=== PATIENT | male | born 1960 | race Caucasian/White ===

== ENCOUNTER 2019-08-02 12:09 | Day surgery (SDC) | payer BC ==
[~2019-08-02 12:09] MED LIST: Buffered Lidocaine 1% SYRIN* 1 ML/SYRINGE INTRADERM ONE; Lactated Ringers 1000 ML Bag* 1,000 ML IV SCH
[2019-08-02] MEDS ORDERED: Benzocaine/Butamben/Tetracain (CETACAINE - SINGLE USE) 5 gm TOPICAL ONE (13:50)
[2019-08-02] MEDS ORDERED: fentaNYL* 50 MCG/ML 2 ML VIAL (100 MCG VIAL) ONE (14:11)
[2019-08-02] MEDS ORDERED: Propofol* 10 MG/ML 20 ML BTL ONE (14:11)
[2019-08-02] MEDS ORDERED: Succinylcholine* 20 MG/ML 10 ML VIAL ONE (14:13)
[2019-08-02] MEDS ORDERED: Rocuronium* 10 MG/ML VIAL ONE (14:13)
[2019-08-02] MEDS ORDERED: Glycopyrrolate IV* 0.2 MG/ML 1 ML VIAL ONE (14:14)
[2019-08-02] MEDS ORDERED: Sugammadex * 200 MG/2 ML VIAL IV PUSH ONE (14:55)
[2019-08-02] MEDS ORDERED: Ondansetron INJ* 2 MG/ML VIAL ONE (15:02)
[2019-08-02] MEDS ORDERED: Naloxone* 0.4 MG/ML 1 ML VIAL IV PRN (15:15)
[2019-08-02] MEDS ORDERED: Acetaminophen IV 1GM/100ML * 1,000 MG/100 ML VIAL IVPB ONE (15:15)
[2019-08-02] MEDS ORDERED: Ondansetron INJ* 2 MG/ML VIAL IV PRN (15:15)
[2019-08-02] MEDS ORDERED: Dexamethasone IV* 4 MG/ML 1 ML (4 MG) ONE (15:31)
[2019-08-02 15:52] VITALS: BP 126/83
--- NOTE | 2019-08-02 16:11 | BRIEFOPN ---
Brief Operative/Procedure Note - Operation Details Pre-Op Diagnosis: Lung mass, PET positive R4 node Post-Op Diagnosis: No metastatic disease in R4 Procedures: Bronchoscopy/EBUS Surgeon(s)/Proceduralists: Shanthi Anesthesia: GA Estimated Blood Loss: Negligable Findings: No metastatic disease in R4, lymphoma testing pending Specimen(s)/Culture(s) Description: FNA from R4 for cell block and flow cytometry Complications: None
--- NOTE | 2019-08-02 17:56 | PRO ---
BRONCHOSCOPY REPORT: DATE OF PROCEDURE: 08/02/19 - [facility] PROCEDURE PERFORMED: Bronchoscopy with endobronchial ultrasound-guided fine needle aspiration of R4 lymph node. PREPROCEDURAL DIAGNOSIS: Lung mass and PET-positive right pretracheal lymph node. ANESTHESIA: General anesthesia. DESCRIPTION OF PROCEDURE: Informed consent was obtained from the patient prior to the procedure after all the risks and benefits were thoroughly explained. The patient recently was undergoing surveillance scan and was found to have enlarged right upper lobe lung mass and enlarged right pretracheal lymph node, which PET confirmed with significant uptake. The patient was intubated with size 8.5 endotracheal tube. Informed consent was obtained from the patient prior to the procedure after all the risks and benefits were thoroughly explained. Appropriate time-out was performed and agreed on by attending staff prior to the procedure. Flexible Olympus bronchoscope was inserted through ET tube for airway inspection. No endobronchial lesions were noted. Thin secretions were noted and suctioned out. Bronchoscope was withdrawn and EBUS bronchoscope was inserted. R4 was accessed with 5 passes. Rapid onsite evaluation revealed normal lymphatic tissue with no malignant cells. Specimen was also placed in [employer]to[employer]yt. Bronchoscope was then withdrawn and Olympus bronchoscope was reinserted. Minimal bleeding was noted and was suctioned out. The patient tolerated the procedure well. The patient was extubated and seen in recovery in optimal condition. [id number]/[facility] #: [id number] [facility]OS[facility]ITALNatalie
== END 2019-08-02 16:05 | disposition home or self-care (01) ==
LOC: OR 12:09
PROVIDERS: ATTEND Internal Medicine
DX: R59.0 Localized enlarged lymph nodes (principal); J98.4 Other disorders of lung; Z85.47 Personal history of malignant neoplasm of testis; Z87.891 Personal history of nicotine dependence; K21.9 Gastro-esophageal reflux disease without esophagitis
CPT/HCPCS: 88172; 88173; 88177; 88184; 88187; 88188; 88189; 88305; J0330; J1100; J2405; J2704; J3010